=== PATIENT | male | born 1935 | race African-American/Black ===

== ENCOUNTER 2019-05-10 11:28 | Observation (INO) | payer MEDICARE, OTHER, SELFPAY ==
[2019-05-10] VITALS (8 sets, daily range): BP systolic 124–173; BP diastolic 56–105; PULSE 53–70; RESP 16–22; TEMP 36–37.3; O2SAT 94–100; BMI 37.7
--- NOTE | 2019-05-10 12:02 | ED_ITS ---
HPI - URI/Sore Throat <Sakina Russell, DO - Last Filed: 05/10/19 13:35> General Chief Complaint: Upper Respiratory Symptoms Stated Complaint: Thinks Pnemonia Time Seen by Provider: 05/10/19 11:40 Source: patient Mode of arrival: Wheelchair History of Present Illness HPI Narrative: Patient is an 83-year-old male with history of pancreatic cancer being treated at [facility] he recently was hospitalized at [facility] for pneumonia knee feels like it might be back. Over last 3 days he feels like he is more weak and tired and has occasional shortness of breath. He denies any sweats or chills no productive cough. He cannot describe a shortness of breath, it does not seem to be significantly worse with exertion or at rest. He denies any orthopnea. He also has intermittent abdominal pain he thinks likely from his pancreatic cancer. He was at [facility] last week for upper seizure which they were unable to do and the procedure needs to be rescheduled. He denies any chest pain or palpitation Related Data Home Medications Medication Instructions Recorded Confirmed allopurinol 100 mg PO DAILY 05/10/19 05/10/19 aspirin 325 mg PO DAILY 05/10/19 05/10/19 carvedilol 25 mg PO BID 05/10/19 05/10/19 clobetasol 1 applic TOPICAL PRN PRN 05/10/19 05/10/19 codeine-guaifenesin [Guaiatussin 10 ml PO Q4-6H PRN 05/10/19 05/10/19 AC] colchicine 0.3 mg PO DAILY 05/10/19 05/10/19 hydralazine 50 mg PO TID 05/10/19 05/10/19 levofloxacin 500 mg PO PRN PRN 05/10/19 05/10/19 lidocaine-prilocaine 1 applic TOPICAL PRN PRN 05/10/19 05/10/19 lisinopril 20 mg PO DAILY 05/10/19 05/10/19 ondansetron HCl 8 mg PO PRN PRN 05/10/19 05/10/19 oxycodone 10 mg PO BID PRN 05/10/19 05/10/19 oxycodone 10 mg PO TID PRN 05/10/19 05/10/19 oxycodone [OxyContin] 10 mg PO BID 05/10/19 05/10/19 potassium chloride 20 meq PO DAILY 05/10/19 05/10/19 potassium chloride [Klor-Con 10] 10 meq PO DAILY 05/10/19 05/10/19 prednisone 40 mg PO DAILY 05/10/19 05/10/19 prochlorperazine maleate 10 mg PO Q6H PRN 05/10/19 05/10/19 tadalafil 20 mg PO DAILY 05/10/19 05/10/19 torsemide 20 mg PO DAILY 05/10/19 05/10/19 Allergies Allergy/AdvReac Type Severity Reaction Status Date / Time NSAIDS (Non-Steroidal AdvReac Hives Verified 05/10/19 13:56 Anti-Inflamma Review of Systems <Sakina Russell DO - Last Filed: 05/10/19 13:35> Review of Systems ROS Unobtainable: All systems reviewed & are unremarkable except as noted in HPI and below Constitutional Constitutional: Denies chills, Denies fever(s), Denies lethargy and Denies weakness Eyes Eyes: Denies change in vision, Denies eye discharge, Denies irritation and Denies loss of vision ENT Ears, Nose, Mouth, and Throat: Denies change in voice, Denies neck pain and Denies sore throat Cardiovascular Cardiovascular: Denies chest pain, Denies irregular heart rhythm, Denies lightheadedness, Denies palpitations and Denies orthopnea Respiratory Respiratory: Reports as per HPI Gastrointestinal Gastrointestinal: Reports as per HPI Genitourinary Genitourinary: Denies hematuria, Denies flank pain, Denies urinary incontinence and Denies urinary urgency Musculoskeletal Musculoskeletal: Denies neck pain Integumentary/Breasts Skin/Breast: Denies pruritus, Denies erythema, Denies rash and Denies wounds Neurologic Neurologic: Denies confusion, Denies loss of vision and Denies weakness Psychiatric Psychiatric: Denies anxiety, Denies confusion, Denies depression, Denies homicidal ideation and Denies suicidal ideation Endocrine Endocrine: Denies palpitations Patient History <Sakina Russell DO - Last Filed: 05/10/19 13:35> Medical History Diabetes (Acute) Hypertension (Acute) Pancreatic cancer (Acute) Prostate cancer (Acute) Social History household members: spouse Smoking Status: Former smoker alcohol intake: never Smoking Status: Former smoker Exam <Sakina Russell DO - Last Filed: 05/10/19 13:35> Initial Vital Signs Initial Vital Signs: Vital Signs Temperature 96.8 F L 05/10/19 11:50 Pulse Rate 58 L 05/10/19 11:50 Respiratory Rate 22 05/10/19 11:50 Blood Pressure 173/70 H 05/10/19 11:50 Pulse Oximetry 100 05/10/19 11:50 GENERAL: Alert elderly male appears younger than stated age HEENT: Head atraumatic,EOMI, pupils reactive, bilateral icterus noted CARDIOVASCULAR: Regular rate and rhythm without murmurs, rubs or gallops. RESPIRATORY: Breath sounds equal bilaterally, no wheezes rales or rhonchi. ABDOMEN: Soft, nontender. Normoactive bowel sounds all 4 quadrants. No guarding or rebound. EXTREMITIES: Normal range of motion, no clubbing or edema. Neurovascularly intact NEUROLOGICAL: Alert and oriented x4.Normal gait and speech. SKIN: Warm, dry, no laceration, no petechiae, no rashes or lesions. <Naeem Lucas DO - Last Filed: 05/10/19 20:19> Initial Vital Signs Initial Vital Signs: Vital Signs Temperature 96.8 F L 05/10/19 11:50 Pulse Rate 58 L 05/10/19 11:50 Respiratory Rate 22 05/10/19 11:50 Blood Pressure 173/70 H 05/10/19 11:50 Pulse Oximetry 100 05/10/19 11:50 Course <Sakina Russell DO - Last Filed: 05/10/19 13:35> Orders Ordered: ED Orders 05/10/19 11:44 EKG-12 Lead Routine 05/10/19 12:20 CT abdomen pelvis w con Stat CT angio chest PE protocol Stat Influenza A & B (PCR) Stat 05/10/19 12:36 Complete Blood Count AUTO DIFF Stat Comprehensive Metabolic Panel Stat Lactate (Lactic Acid) Stat Lipase Stat Partial Thromboplastin Time Stat Procalcitonin Stat Prothrombin Time INR Stat Troponin & CK Cardiac Panel Stat 05/10/19 14:51 Urine Microscopic Stat 05/10/19 16:42 Potassium Stat 05/10/19 17:03 Urine Culture Stat Al Hydrox/Mg Hydrox/Simethicone (Maalox Plus) 30 ml PO Q6HR PRN PRN Reason: Dyspepsia Bisacodyl (Dulcolax) 10 mg MS DAILY PRN PRN Reason: Constipation Calcium Carbonate (Tums) 1,000 mg PO Q4HR PRN PRN Reason: Dyspepsia Dextrose (D50w) 25 gm IV PRN PRN; Protocol PRN Reason: Hypoglycemia Docusate Sodium (Colace) 100 mg PO BID PRN PRN Reason: Constipation Enoxaparin Sodium (Lovenox) 115 mg 1 mg/kg (115 mg) SUBCUT BID JN Insulin Aspart (Novolog Flexpen) 0 unit SUBCUT ACHS JN; Protocol Naloxone HCl (Narcan) 0.2 mg IV Q2MIN PRN PRN Reason: Opiate Reversal Ondansetron HCl (Zofran) 4 mg IV Q8HR PRN PRN Reason: Nausea And Vomiting Oxycodone HCl (Percolone) 5 mg PO Q6HR PRN PRN Reason: Pain, Moderate (4-6) Discontinued Medications Enoxaparin Sodium (Lovenox) 115 mg 1 mg/kg (115 mg) SUBCUT NOW ONE Stop: 05/10/19 17:21 Last Admin: 05/10/19 18:39 Dose: 115 mg Documented by: MEISENDelia Sodium Chloride (Normal Saline 0.9%) 1,000 mls @ 200 mls/hr IV CONT JN Last Infusion: 05/10/19 18:56 Dose: 0 mls/hr Documented by: Infusion: 05/10/19 18:05 Dose: 200 mls/hr Documented by: Admin: 05/10/19 13:03 Dose: 200 mls/hr Documented by: KELLEY Potassium Chloride 40 meq/ (Sodium Chloride) 520 mls @ 130 mls/hr IV NOW ONE Stop: 05/10/19 17:13 Last Infusion: 05/10/19 18:04 Dose: 130 mls/hr Documented by: CRISTÓBALSENB Cosigned by: AURORA Admin: 05/10/19 13:54 Dose: 130 mls/hr Documented by: CRISTÓBALSENB Cosigned by: AURORA Potassium Chloride (Klor-Con M20) 40 meq PO NOW ONE Stop: 05/10/19 13:36 Last Admin: 05/10/19 13:55 Dose: 40 meq Documented by: MEISENDelia Vital Signs Vital signs: Vital Signs - 8 hr 05/10/19 12:52 05/10/19 13:59 05/10/19 16:50 Pulse Rate 53 L 57 L 63 Respiratory Rate 18 16 17 Blood Pressure [Left Arm] 173/70 H 167/86 H 135/66 Pulse Oximetry 100 98 100 <Naeem Lucas, DO - Last Filed: 05/10/19 20:19> Course Course Narrative: Patient received in sign-out from Dr. Russell. I have performed an independent history and physical exam. CT has returned small pulmonary emboli in the right lower lobe. No pneumonia noted. PE has no ev idence of strain. Patient needs hospitalization for stabilization of hypoK and initiation of anticoagulation Orders Ordered: ED Orders 05/10/19 11:44 EKG-12 Lead Routine 05/10/19 12:20 CT abdomen pelvis w con Stat CT angio chest PE protocol Stat Influenza A & B (PCR) Stat 05/10/19 12:36 Complete Blood Count AUTO DIFF Stat Comprehensive Metabolic Panel Stat Lactate (Lactic Acid) Stat Lipase Stat Partial Thromboplastin Time Stat Procalcitonin Stat Prothrombin Time INR Stat Troponin & CK Cardiac Panel Stat 05/10/19 14:51 Urine Microscopic Stat 05/10/19 16:42 Potassium Stat 05/10/19 17:03 Urine Culture Stat Al Hydrox/Mg Hydrox/Simethicone (Maalox Plus) 30 ml PO Q6HR PRN PRN Reason: Dyspepsia Bisacodyl (Dulcolax) 10 mg MS DAILY PRN PRN Reason: Constipation Calcium Carbonate (Tums) 1,000 mg PO Q4HR PRN PRN Reason: Dyspepsia Dextrose (D50w) 25 gm IV PRN PRN; Protocol PRN Reason: Hypoglycemia Docusate Sodium (Colace) 100 mg PO BID PRN PRN Reason: Constipation Enoxaparin Sodium (Lovenox) 115 mg 1 mg/kg (115 mg) SUBCUT BID JN Insulin Aspart (Novolog Flexpen) 0 unit SUBCUT ACHS JN; Protocol Naloxone HCl (Narcan) 0.2 mg IV Q2MIN PRN PRN Reason: Opiate Reversal Ondansetron HCl (Zofran) 4 mg IV Q8HR PRN PRN Reason: Nausea And Vomiting Oxycodone HCl (Percolone) 5 mg PO Q6HR PRN PRN Reason: Pain, Moderate (4-6) Discontinued Medications Enoxaparin Sodium (Lovenox) 115 mg 1 mg/kg (115 mg) SUBCUT NOW ONE Stop: 05/10/19 17:21 Last Admin: 05/10/19 18:39 Dose: 115 mg Documented by: JANEE Sodium Chloride (Normal Saline 0.9%) 1,000 mls @ 200 mls/hr IV CONT JN Last Infusion: 05/10/19 18:56 Dose: 0 mls/hr Documented by: Infusion: 05/10/19 18:05 Dose: 200 mls/hr Documented by: Admin: 05/10/19 13:03 Dose: 200 mls/hr Documented by: KELLEY Potassium Chloride 40 meq/ (Sodium Chloride) 520 mls @ 130 mls/hr IV NOW ONE Stop: 05/10/19 17:13 Last Infusion: 05/10/19 18:04 Dose: 130 mls/hr Documented by: JANEE Cosigned by: AURORA Admin: 05/10/19 13:54 Dose: 130 mls/hr Documented by: JANEE Cosigned by: AURORA Potassium Chloride (Klor-Con M20) 40 meq PO NOW ONE Stop: 05/10/19 13:36 Last Admin: 05/10/19 13:55 Dose: 40 meq Documented by: JANEE Vital Signs Vital signs: Vital Signs - 8 hr 05/10/19 12:52 05/10/19 13:59 05/10/19 16:50 Pulse Rate 53 L 57 L 63 Respiratory Rate 18 16 17 Blood Pressure [Left Arm] 173/70 H 167/86 H 135/66 Pulse Oximetry 100 98 100 MDM - URI/Sore Throat <Sakina Russell DO - Last Filed: 05/10/19 13:35> Lab Data Attestation: I reviewed the patient's lab results. Result diagrams: 05/10/19 12:36 05/10/19 16:42 Labs: Lab Results 05/10/19 05/10/19 05/10/19 Range/Units 12:36 12:36 12:36 WBC 7.5 (4.5-11.0) X10^3/uL RBC 3.24 L (4.5-5.9) X10^6/uL Hgb 10.5 L (13.5-17.5) g/dL Hct 30.3 L (41-53) % MCV 93.6 (80-100) fL MCH 32.3 (26-34) PG MCHC 34.5 (30-36) % RDW 16.5 H (11.6-14.8) % Plt Count 231 (150-400) X10^3/uL Neut % (Auto) 56.9 (50-75) % Lymph % (Auto) 32.3 (25-40) % [place] % (Auto) 8.7 (3-14) % Eos % (Auto) 1.2 L (2-4) % Baso % (Auto) 0.9 (0-2) % Neut # (Auto) 4300 (6269-7628) /uL Lymph # (Auto) 2400 (7571-7181) /uL [place] # (Auto) 700 (0-900) /uL Eos # (Auto) 100 (0-450) /uL Baso # (Auto) 100 (0-100) /uL PT 20.9 H (10.1-12.7) SECONDS INR 1.8 H (0.9-1.3) APTT 31 (26.4-36.2) SECONDS Sodium (137-145) mmol/L Potassium (3.4-5.1) mmol/L Chloride (98-107) mmol/L Carbon Dioxide (22-32) mmol/L BUN (9-20) mg/dL Creatinine (0.66-1.25) mg/dL Estimated GFR (>60) mL/min BUN/Creatinine Ratio (6-22) Glucose (80-110) mg/dL Lactate (0.7-2.1) mmol/L Calcium (8.4-10.2) mg/dL Total Bilirubin (0.2-1.3) mg/dL AST (17-59) IU/L ALT (<50) IU/L Alkaline Phosphatase (38-126) U/L Total Creatine Kinase (55-170) U/L CK-MB (CK-2) CK-MB (CK-2) Rel Index Troponin I (0.01-0.034) ng/mL Total Protein (6.3-8.2) g/dL Albumin (3.5-5.0) g/dL Globulin (1.7-4.1) g/dL Albumin/Globulin Ratio (1.0-2.8) Lipase (23-300) U/L Procalcitonin 0.39 (<0.5) ng/mL Urine RBC (0-5/HPF) Urine WBC (0-5/HPF) Urine Bacteria (None) Hyaline Casts (None) Ur Culture Indicated? 05/10/19 05/10/19 05/10/19 Range/Units 12:36 12:36 14:51 WBC (4.5-11.0) X10^3/uL RBC (4.5-5.9) X10^6/uL Hgb (13.5-17.5) g/dL Hct (41-53) % MCV (80-100) fL MCH (26-34) PG MCHC (30-36) % RDW (11.6-14.8) % Plt Count (150-400) X10^3/uL Neut % (Auto) (50-75) % Lymph % (Auto) (25-40) % [place] % (Auto) (3-14) % Eos % (Auto) (2-4) % Baso % (Auto) (0-2) % Neut # (Auto) (8945-0832) /uL Lymph # (Auto) (2904-3301) /uL [place] # (Auto) (0-900) /uL Eos # (Auto) (0-450) /uL Baso # (Auto) (0-100) /uL PT (10.1-12.7) SECONDS INR (0.9-1.3) APTT (26.4-36.2) SECONDS Sodium 139 (137-145) mmol/L Potassium 2.2 L* (3.4-5.1) mmol/L Chloride 95 L (98-107) mmol/L Carbon Dioxide 37 H (22-32) mmol/L BUN 27 H (9-20) mg/dL Creatinine 1.50 H (0.66-1.25) mg/dL Estimated GFR 44.7 L (>60) mL/min BUN/Creatinine Ratio 18.0 (6-22) Glucose 120 H (80-110) mg/dL Lactate 1.4 (0.7-2.1) mmol/L Calcium 8.3 L (8.4-10.2) mg/dL Total Bilirubin 12.2 H (0.2-1.3) mg/dL AST 170 H (17-59) IU/L ALT 130 H (<50) IU/L Alkaline Phosphatase 652 H (38-126) U/L Total Creatine Kinase 72 (55-170) U/L CK-MB (CK-2) TNP CK-MB (CK-2) Rel Index TNP Troponin I 0.043 H (0.01-0.034) ng/mL Total Protein 6.8 (6.3-8.2) g/dL Albumin 3.1 L (3.5-5.0) g/dL Globulin 3.7 (1.7-4.1) g/dL Albumin/Globulin Ratio 0.8 L (1.0-2.8) Lipase 445 H (23-300) U/L Procalcitonin (<0.5) ng/mL Urine RBC None seen (0-5/HPF) Urine WBC 5-10/hpf H (0-5/HPF) Urine Bacteria Many (>30) H (None) Hyaline Casts 1-5/lpf (None) Ur Culture Indicated? Specimen cultured 05/10/19 Range/Units 16:42 WBC (4.5-11.0) X10^3/uL RBC (4.5-5.9) X10^6/uL Hgb (13.5-17.5) g/dL Hct (41-53) % MCV (80-100) fL MCH (26-34) PG MCHC (30-36) % RDW (11.6-14.8) % Plt Count (150-400) X10^3/uL Neut % (Auto) (50-75) % Lymph % (Auto) (25-40) % [place] % (Auto) (3-14) % Eos % (Auto) (2-4) % Baso % (Auto) (0-2) % Neut # (Auto) (4487-1655) /uL Lymph # (Auto) (1411-5174) /uL [place] # (Auto) (0-900) /uL Eos # (Auto) (0-450) /uL Baso # (Auto) (0-100) /uL PT (10.1-12.7) SECONDS INR (0.9-1.3) APTT (26.4-36.2) SECONDS Sodium (137-145) mmol/L Potassium 2.8 L (3.4-5.1) mmol/L Chloride (98-107) mmol/L Carbon Dioxide (22-32) mmol/L BUN (9-20) mg/dL Creatinine (0.66-1.25) mg/dL Estimated GFR (>60) mL/min BUN/Creatinine Ratio (6-22) Glucose (80-110) mg/dL Lactate (0.7-2.1) mmol/L Calcium (8.4-10.2) mg/dL Total Bilirubin (0.2-1.3) mg/dL AST (17-59) IU/L ALT (<50) IU/L Alkaline Phosphatase (38-126) U/L Total Creatine Kinase (55-170) U/L CK-MB (CK-2) CK-MB (CK-2) Rel Index Troponin I (0.01-0.034) ng/mL Total Protein (6.3-8.2) g/dL Albumin (3.5-5.0) g/dL Globulin (1.7-4.1) g/dL Albumin/Globulin Ratio (1.0-2.8) Lipase (23-300) U/L Procalcitonin (<0.5) ng/mL Urine RBC (0-5/HPF) Urine WBC (0-5/HPF) Urine Bacteria (None) Hyaline Casts (None) Ur Culture Indicated? Urine Dip Bedside Urine Glucose 100 mg/dl Bedside Urine Bilirubin + 1 Bedside Urine Ketone - Negative Urine Specific [place] 1.025 Bedside Urine Occult Blood - Negative Bedside Urine pH 6.0 Bedside Urine Protein +/- 15 Bedside Urine Urobilinogen - Negative Bedside Urine Nitrite + Positive Bedside Urine Leukocytes ++ 125 Esterase ECG Data Attestation: I personally reviewed and interpreted this ECG as follows: Prior ECG tracings: available for review Interpretation: Sinus rhythm rate 57 p.r. interval [address]-elevation or depression no priors to compare MDM Narrative Medical decision making narrative: Awaiting records from [facility]. Patient overall appears well and not septic however he is clearly jaundiced. Potassium came back at critically low 2.2 unclear reason why. Still awaiting records from [facility] to compare Patient is signed out to Dr. Lucas for further evaluation and management <Naeem Lucas, - Last Filed: 05/10/19 20:19> Lab Data Labs: Lab Results 05/10/19 05/10/19 05/10/19 Range/Units 12:36 12:36 12:36 WBC 7.5 (4.5-11.0) X10^3/uL RBC 3.24 L (4.5-5.9) X10^6/uL Hgb 10.5 L (13.5-17.5) g/dL Hct 30.3 L (41-53) % MCV 93.6 (80-100) fL MCH 32.3 (26-34) PG MCHC 34.5 (30-36) % RDW 16.5 H (11.6-14.8) % Plt Count 231 (150-400) X10^3/uL Neut % (Auto) 56.9 (50-75) % Lymph % (Auto) 32.3 (25-40) % [place] % (Auto) 8.7 (3-14) % Eos % (Auto) 1.2 L (2-4) % Baso % (Auto) 0.9 (0-2) % Neut # (Auto) 4300 (6065-8276) /uL Lymph # (Auto) 2400 (6261-7199) /uL [place] # (Auto) 700 (0-900) /uL Eos # (Auto) 100 (0-450) /uL Baso # (Auto) 100 (0-100) /uL PT 20.9 H (10.1-12.7) SECONDS INR 1.8 H (0.9-1.3) APTT 31 (26.4-36.2) SECONDS Sodium (137-145) mmol/L Potassium (3.4-5.1) mmol/L Chloride (98-107) mmol/L Carbon Dioxide (22-32) mmol/L BUN (9-20) mg/dL Creatinine (0.66-1.25) mg/dL Estimated GFR (>60) mL/min BUN/Creatinine Ratio (6-22) Glucose (80-110) mg/dL Lactate (0.7-2.1) mmol/L Calcium (8.4-10.2) mg/dL Total Bilirubin (0.2-1.3) mg/dL AST (17-59) IU/L ALT (<50) IU/L Alkaline Phosphatase (38-126) U/L Total Creatine Kinase (55-170) U/L CK-MB (CK-2) CK-MB (CK-2) Rel Index Troponin I (0.01-0.034) ng/mL Total Protein (6.3-8.2) g/dL Albumin (3.5-5.0) g/dL Globulin (1.7-4.1) g/dL Albumin/Globulin Ratio (1.0-2.8) Lipase (23-300) U/L Procalcitonin 0.39 (<0.5) ng/mL Urine RBC (0-5/HPF) Urine WBC (0-5/HPF) Urine Bacteria (None) Hyaline Casts (None) Ur Culture Indicated? 05/10/19 05/10/19 05/10/19 Range/Units 12:36 12:36 14:51 WBC (4.5-11.0) X10^3/uL RBC (4.5-5.9) X10^6/uL Hgb (13.5-17.5) g/dL Hct (41-53) % MCV (80-100) fL MCH (26-34) PG MCHC (30-36) % RDW (11.6-14.8) % Plt Count (150-400) X10^3/uL Neut % (Auto) (50-75) % Lymph % (Auto) (25-40) % [place] % (Auto) (3-14) % Eos % (Auto) (2-4) % Baso % (Auto) (0-2) % Neut # (Auto) (4286-3390) /uL Lymph # (Auto) (9683-5494) /uL [place] # (Auto) (0-900) /uL Eos # (Auto) (0-450) /uL Baso # (Auto) (0-100) /uL PT (10.1-12.7) SECONDS INR (0.9-1.3) APTT (26.4-36.2) SECONDS Sodium 139 (137-145) mmol/L Potassium 2.2 L* (3.4-5.1) mmol/L Chloride 95 L (98-107) mmol/L Carbon Dioxide 37 H (22-32) mmol/L BUN 27 H (9-20) mg/dL Creatinine 1.50 H (0.66-1.25) mg/dL Estimated GFR 44.7 L (>60) mL/min BUN/Creatinine Ratio 18.0 (6-22) Glucose 120 H (80-110) mg/dL Lactate 1.4 (0.7-2.1) mmol/L Calcium 8.3 L (8.4-10.2) mg/dL Total Bilirubin 12.2 H (0.2-1.3) mg/dL AST 170 H (17-59) IU/L ALT 130 H (<50) IU/L Alkaline Phosphatase 652 H (38-126) U/L Total Creatine Kinase 72 (55-170) U/L CK-MB (CK-2) TNP CK-MB (CK-2) Rel Index TNP Troponin I 0.043 H (0.01-0.034) ng/mL Total Protein 6.8 (6.3-8.2) g/dL Albumin 3.1 L (3.5-5.0) g/dL Globulin 3.7 (1.7-4.1) g/dL Albumin/Globulin Ratio 0.8 L (1.0-2.8) Lipase 445 H (23-300) U/L Procalcitonin (<0.5) ng/mL Urine RBC None seen (0-5/HPF) Urine WBC 5-10/hpf H (0-5/HPF) Urine Bacteria Many (>30) H (None) Hyaline Casts 1-5/lpf (None) Ur Culture Indicated? Specimen cultured 05/10/19 Range/Units 16:42 WBC (4.5-11.0) X10^3/uL RBC (4.5-5.9) X10^6/uL Hgb (13.5-17.5) g/dL Hct (41-53) % MCV (80-100) fL MCH (26-34) PG MCHC (30-36) % RDW (11.6-14.8) % Plt Count (150-400) X10^3/uL Neut % (Auto) (50-75) % Lymph % (Auto) (25-40) % [place] % (Auto) (3-14) % Eos % (Auto) (2-4) % Baso % (Auto) (0-2) % Neut # (Auto) (5680-9922) /uL Lymph # (Auto) (4646-6036) /uL [place] # (Auto) (0-900) /uL Eos # (Auto) (0-450) /uL Baso # (Auto) (0-100) /uL PT (10.1-12.7) SECONDS INR (0.9-1.3) APTT (26.4-36.2) SECONDS Sodium (137-145) mmol/L Potassium 2.8 L (3.4-5.1) mmol/L Chloride (98-107) mmol/L Carbon Dioxide (22-32) mmol/L BUN (9-20) mg/dL Creatinine (0.66-1.25) mg/dL Estimated GFR (>60) mL/min BUN/Creatinine Ratio (6-22) Glucose (80-110) mg/dL Lactate (0.7-2.1) mmol/L Calcium (8.4-10.2) mg/dL Total Bilirubin (0.2-1.3) mg/dL AST (17-59) IU/L ALT (<50) IU/L Alkaline Phosphatase (38-126) U/L Total Creatine Kinase (55-170) U/L CK-MB (CK-2) CK-MB (CK-2) Rel Index Troponin I (0.01-0.034) ng/mL Total Protein (6.3-8.2) g/dL Albumin (3.5-5.0) g/dL Globulin (1.7-4.1) g/dL Albumin/Globulin Ratio (1.0-2.8) Lipase (23-300) U/L Procalcitonin (<0.5) ng/mL Urine RBC (0-5/HPF) Urine WBC (0-5/HPF) Urine Bacteria (None) Hyaline Casts (None) Ur Culture Indicated? Urine Dip Bedside Urine Glucose 100 mg/dl Bedside Urine Bilirubin + 1 Bedside Urine Ketone - Negative Urine Specific [place] 1.025 Bedside Urine Occult Blood - Negative Bedside Urine pH 6.0 Bedside Urine Protein +/- 15 Bedside Urine Urobilinogen - Negative Bedside Urine Nitrite + Positive Bedside Urine Leukocytes ++ 125 Esterase Discharge Plan Departure Patient Disposition: Admitted As Inpatient Clinical Impression: Acute hypokalemia Pulmonary emboli Qualifiers: Chronicity: acute Acute cor pulmonale presence: unspecified Discharge Date/Time: 05/10/19 18:57 Admit Date/Time: 05/10/19 18:27 Admit Provider: Nidhi Hernandez
--- NOTE | 2019-05-10 12:20 | DI.CT.S_ITS ---
PROCEDURE: CT ABDOMEN PELVIS W CON INDICATIONS: known pancreatic cancer with ab pain TECHNIQUE: After the administration of oral and intravenous contrast, 5 mm thick sections acquired from the diaphragms to the symphysis. 5 mm thick coronal and sagittal reformats were performed. For radiation dose reduction, the following was used: automated exposure control, adjustment of mA and/or kV according to patient size. COMPARISON: None. FINDINGS: Image quality: Diagnostic. ABDOMEN: Lung bases: Prominent elevation of the left diaphragm is identified. There are areas of basilar atelectasis. Solid organs: The liver is normal in size. There is marked intrahepatic and extrahepatic biliary dilatation. There also is prominent dilatation of the main pancreatic duct. Soft tissue prominence of the head of the pancreas is identified. There is a prominent lymph node evident within the portacaval region and may be somewhat necrotic. The gallbladder is enlarged. Small gallstones within a phrygian cap are incidentally noted. The adrenals and kidneys appear to be within normal limits. The spleen is unremarkable. Peritoneum and bowel: The stomach and duodenum are within normal limits. The small bowel loops are nondilated. The appendix is well-visualized and is normal. A large amount of residual stool is identified throughout the colon. Distal colonic diverticulosis is identified without diverticulitis. There is no free fluid, loculated fluid collection or free air. Nodes and vessels: No extensive lymphadenopathy is seen within the abdomen or pelvis. However, there is at least a single dominant heterogeneous lymph node identified within the portacaval region, which measures approximately 2.7 x 2.0 cm (image 45, series 12). Additional smaller portacaval lymph nodes are evident. Aorta and inferior vena cava are normal in caliber. There is prominent aortic atherosclerosis. Bones: No acute fracture or suspicious osseous lesion is identified. Moderate degenerative changes of the lower lumbar spine are present. PELVIS: Genitourinary: Bladder wall thickness is normal. The prostate is surgically absent. Miscellaneous: No inguinal hernias or adenopathy. No free fluid or loculated fluid collection is appreciated. There is no free air. Bones: No suspicious bony lesions. No vertebral body compression fractures. IMPRESSION: 1. Marked dilatation of the biliary ducts and the main pancreatic duct is suggestive of a pancreatic head mass. 2. Enlarged portacaval lymph nodes are likely metastatic. No additional enlarged lymph nodes are appreciated or other evidence of metastatic disease. 3. The gallbladder is enlarged, which may represent chronic biliary stasis or gallbladder hydrops. There are small gallstones present. 4. Colonic diverticulosis without diverticulitis. There may be constipation. Note: Findings were discussed with Dr. Lucas at approximately 1405 hours (PST) on 05/10/19. Dictated by: Gavin Oliveira M.D. on 05/10/2019 at 13:29 Approved by: Gavin Oliveira M.D. on 05/10/2019 at 13:34
--- NOTE | 2019-05-10 12:20 | DI.CT.S_ITS ---
PROCEDURE: CT ANGIO CHEST PE PROTOCOL INDICATIONS: sob with pancreatic cancer TECHNIQUE: After the administration of intravenous contrast, 2 mm thick sections acquired from the pulmonary apices to the posterior costophrenic angles. 3-dimensional maximum intensity projection (MIP) coronal and sagittal reformats were then acquired through the thorax. For radiation dose reduction, the following was used: automated exposure control, adjustment of mA and/or kV according to patient size. COMPARISON: [facility], CT, CT ABDOMEN PELVIS W CON, 05/10/2019, 13:20. FINDINGS: Image quality: Diagnostic. Pulmonary arteries: A few small intraluminal filling defects are identified within the subsegmental pulmonary arterial branches of the right lower lobe pulmonary arterial branches (image 84, series 5). No definite additional pulmonary emboli are identified. No saddle embolism or large pulmonary emboli are present. The main pulmonary arterial trunk is not enlarged. Lungs and pleura: Prominent elevation of the left diaphragm may be related to diaphragmatic paralysis versus a diaphragmatic hernia with bowel and spleen extending into the thoracic cavity. This does exert mild mass effect on the left ventricle. Patchy areas of scarring versus atelectasis are noted within the bilateral lung bases and within the superior aspect of the right upper lobe. No effusion or pneumothorax is identified. No large area of pulmonary consolidation is appreciated. No lung masses or definitive pulmonary nodules are evident. Mediastinum: Heart size is normal, without pericardial effusion. No mediastinal or hilar adenopathy. Coronary and aortic atherosclerosis is noted. Thoracic aorta is normal in caliber and enhancement. Esophagus is normal in caliber, without hiatal hernia. Bones and chest wall: No suspicious bony lesions. Ribs and thoracic spine appear intact throughout. Thyroid gland is not adequately evaluated on CT. No axillary or supraclavicular adenopathy. Abdomen: Please see the dictated report of the abdomen/pelvis CT from 05/10/19 for complete details. IMPRESSION: 1. Small pulmonary emboli within the right lower lobe pulmonary arterial branches. 2. Mild scarring versus atelectasis within the lungs without a definite pneumonia evident. 3. Coronary and aortic atherosclerosis. 4. 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 Note: Findings were discussed with Dr. Lucas at 1405 hours (PST) on 05/10/19. Dictated by: Gavin Oliveira M.D. on 05/10/2019 at 12:56 Approved by: Gavin Oliveira M.D. on 05/10/2019 at 13:08
[2019-05-10 12:57] LABS: Add Manual Diff / Slide Review NO; Basophils Absolute Auto 100 /uL (0-100); Basophils Percent Auto 0.9 % (0-2); Eosinophils Absolute Auto 100 /uL (0-450); Eosinophils Percent Auto 1.2 % (2-4); Hematocrit 30.3 % (41-53); Hemoglobin 10.5 g/dL (13.5-17.5); INR 1.8 (0.9-1.3); Lymphocytes Absolute Auto 2400 /uL (1100-4500); Lymphocytes Percent Auto 32.3 % (25-40); Mean Corpuscular HGB Conc 34.5 % (30-36); Mean Corpuscular Hemoglobin 32.3 PG (26-34); Mean Corpuscular Volume 93.6 fL (80-100); Monocytes Absolute Auto 700 /uL (0-900); Monocytes Percent Auto 8.7 % (3-14); Neutrophils Absolute Auto 4300 /uL (1500-7000); Neutrophils Percent Auto 56.9 % (50-75); Platelet Count 231 X10^3/uL (150-400); Prothrombin Time 20.9 SECONDS (10.1-12.7); Red Blood Cell Count 3.24 X10^6/uL (4.5-5.9); Red Cell Distribution Width 16.5 % (11.6-14.8); White Blood Cell Count 7.5 X10^3/uL (4.5-11.0)
[2019-05-10 13:00] LABS: PTT Partial Thromboplastin Tim 31 SECONDS (26.4-36.2)
[2019-05-10 13:03] LABS: Lactate (Lactic Acid) 1.4 mmol/L (0.7-2.1)
[2019-05-10] MEDS: SODIUM CHLORIDE 0.9% 1,000 ML 200 ML IV (13:03)
[2019-05-10 13:04] LABS: Alanine Aminotransferase 130 IU/L (<50); Albumin 3.1 g/dL (3.5-5.0); Albumin Globulin Ratio 0.8 (1.0-2.8); Alkaline Phosphatase 652 U/L (38-126); Aspartate Aminotransferase 170 IU/L (17-59); Bilirubin Total 12.2 mg/dL (0.2-1.3); Blood Urea Nitrogen 27 mg/dL (9-20); Calcium 8.3 mg/dL (8.4-10.2); Carbon Dioxide 37 mmol/L (22-32); Chloride 95 mmol/L (98-107); Creatine Kinase 72 U/L (55-170); Estimated Glomerular Filt Rate 44.7 mL/min (>60); Globulin 3.7 g/dL (1.7-4.1); Glucose 120 mg/dL (80-110); HEMOLYSIS < 15 (0-50); Lipase 445 U/L (23-300); Sodium 139 mmol/L (137-145); Total Protein 6.8 g/dL (6.3-8.2)
[2019-05-10 13:12] LABS: Potassium 2.2 mmol/L (3.4-5.1)
[2019-05-10 13:15] LABS: Troponin I 0.043 ng/mL (0.01-0.034)
--- NOTE | 2019-05-10 13:23 | PC.NURSE ---
reports had double pneumonia in [place] for 3 weeks, home for 2 weeks, not better.
[2019-05-10 13:24] LABS: Procalcitonin 0.39 ng/mL (<0.5)
[2019-05-10] MEDS: POTASSIUM CHLORIDE 40 MEQ in SODIUM CHLORIDE 0.9% 500 ML 130 ML IV ×2 (13:54→23:42)
[2019-05-10] MEDS: POTASSIUM CHLORIDE 20 MEQ TAB 40 MEQ PO (13:55)
[2019-05-10 15:50] LABS: RBC Urine None Seen (0-5/HPF)
[2019-05-10 16:09] LABS: Bacteria Urine Many (>30); Culture Indicated Urine Specimen Cultured; Hyaline Casts Urine 1-5/LPF; WBC Urine 5-10/HPF (0-5/HPF)
--- NOTE | 2019-05-10 16:50 | PC.NURSE ---
breath sound clear bilaterally. pt states, feeling fine.
[2019-05-10 16:59] LABS: HEMOLYSIS 48 (0-50)
[2019-05-10 17:02] LABS: Potassium 2.8 mmol/L (3.4-5.1)
[2019-05-10] MEDS: ENOXAPARIN 100 MG/ML SYRINGE 115 MG SUBCUT (18:39)
--- NOTE | 2019-05-10 19:16 | PC.NURSE ---
Pt arrived to room 223 from ED via w/c. Stand pivot trans to bed. Pt reports he is w/c bound at baseline. BP elevated. Pt denies headache or other symptoms. Oriented to room and call system. 2 RN skin check complete. Supportive family at bedside. Bed alarm placed on, Fall prevention education provided.
[2019-05-10] MEDS: MAGNESIUM SULFATE 2 GM/50 ML PIGGYBACK IV (21:21)
[2019-05-10] MEDS: HYDRALAZINE 25 MG TABLET 50 MG PO (21:32)
[2019-05-10] MEDS: carvediloL 25 MG TABLET PO (21:32)
[2019-05-10] MEDS: MELATONIN 3 MG TABLET 6 MG PO (21:33)
[2019-05-10] MEDS: OXYCODONE ER 10 MG TAB PO (21:33)
[2019-05-10] MEDS: PANTOPRAZOLE 20 MG TABLET 40 MG PO (21:35)
--- NOTE | 2019-05-10 22:13 | PM.HP.1 ---
History of Present Illness History of Present Illness Date Patient Seen: 05/10/19 Time Patient Seen: 20:21 Chief complaint: Thinks Pnemonia Narrative: Mr. Gildardo Llanos is an 83-year-old male with a history significant for type 2 diabetes, hypertension, pancreatic cancer, prostate cancer, chronic back pain and GERD who presents to the ER for 3 days of weakness feeling tired, shortness of breath and intermittent nonproductive cough. The patient was recently admitted to [facility] and discharged 1 week ago following treatment for pneumonia and states his concern of pneumonia returning. Upon discharge from [facility] the patient was prescribed 80 mEq of potassium daily to which the pharmacy stated that that dose was too high and told the patient to take 40 mg daily. The patient also complains of abdominal pain with a history of pancreatic cancer. He has previously received chemotherapy and is taking OxyContin and oxycodone for pain. The patient denies complaints of headaches or dizziness, fevers or chills. He has no nasal congestion or sore throat. Denies complaints of chest pain or palpitations and has shortness of breath that appears to be exertional with cough as above. He has chronic abdominal pain that he states is unchanged. He reports complaints of reflux symptoms with acid taste and hoarseness. He denies nausea or vomiting and denies constipation or diarrhea. Reports no difficulty urinating and takes torsemide for bilateral lower extremity edema. He also reports neuropathy of bilateral lower extremities creating difficulty ambulating for which she is undergoing physical therapy. Upon arrival the ER the patient is afebrile with temperature of 96.8?, heart rate of 58, blood pressure 173/70, respiratory rate of 22 saturating 100% on room air. CT of the abdomen pelvis revealed feels heart ductal dilatation including the main pancreatic duct, gallbladder is enlarged with stasis versus hydrops with small stones present, colonic diverticulosis without diverticulitis, enlarged portacaval lymph nodes. CT of the chest is obtained which reveals subsegmental right lower lobe pulmonary emboli, elevated left hemidiaphragm with scarring versus atelectasis bilateral bases without pneumonia. Twelve lead EKG is obtained which finds a sinus Ted with a rate of 57, right axis with a right bundle branch block, left posterior fascicular block, no evidence of ischemia. On laboratory analysis patient has white blood cell count of 7.5, hemoglobin of 10.5, hematocrit of 30.3 and platelets of 231. Coagulation has a PT of 20.9 with an INR of 1.8 and PTT of 31 not on anticoagulation. On chemistries patient was initially found to have a potassium of 2.2 which was repleted with 40 mEq p.o. and 40 mEq IV and on recheck was found to be 2.8. His LFTs are markedly elevated a total bilirubin 12.2, AST of 170, ALT of 130 and alkaline phosphatase of 652. His lipase is 445. He has a from that is elevated at 0.043 in the setting of chronic renal disease. On urinalysis he has 5-10 wbc's many bacteria casts but is asymptomatic. Size repletion of potassium in the ER the patient receives Lovenox 1 milligram/kilogram for 115 mg subcutaneously. Patient is admitted to the medicine service for pulmonary emboli and hypokalemia. Patient History Medical History (Updated 05/11/19 @ 03:27 by ASHISH Watts) Agent orange exposure (Acute) Chronic back pain (Acute) Chronic renal insufficiency, stage III (moderate) (Acute) Diabetes (Acute) GERD (gastroesophageal reflux disease) (Acute) Hypertension (Acute) Pancreatic cancer (Acute) Peripheral neuropathy (Acute) Prostate cancer (Acute) PTSD (post-traumatic stress disorder) (Acute) Skin cancer (Acute) Surgical History (Updated 05/11/19 @ 03:27 by ASHISH Watts) History of local excision of skin lesion (Acute) History of prostatectomy (Acute) Family & Social History Family History (Updated 05/11/19 @ 03:28 by ASHISH Watts) Father Trauma Mother Arthritis Social History: household members spouse Prior Living Arrangements House Safety & Behavioral: Feels Safe in Current Yes Environment Been Physically Hurt or No Threatened By a Person Tobacco & Substance use: Smoking Status Former smoker alcohol intake never Substance Use Type does not use Comment: The patient lives in a single family home with his to whom has been for 20 years. He reports his father 1 he was only 2 years old related to trauma did not no further his health history. His mother had arthritis and lived to be 83. He has 2 half brothers that he has describes as in good health and he has 4 children also in good health. He denies a family history of cancer, diabetes or cardiovascular disease. Smoking: Patient quit smoking 50 years ago before which he smoked 1/2 packs per day. Alcohol: Patient drinks alcohol intermittently but limits himself to 2 drinks at a time. Substance use: Patient denies recreation pharmaceuticals herbal or cannabis products. Advanced directives: The patient has formal advanced directive and states his desire to be FULL CODE. He designates his to be his surrogate decision maker. Meds Home Medications and Allergies Home Medications Medication Instructions Recorded Confirmed Type allopurinol 100 mg PO DAILY 05/10/19 05/10/19 History aspirin 325 mg PO DAILY 05/10/19 05/10/19 History carvedilol 25 mg PO BID 05/10/19 05/10/19 History clobetasol 1 applic TOPICAL PRN PRN 05/10/19 05/10/19 History codeine-guaifenesin [Guaiatussin 10 ml PO Q4-6H PRN 05/10/19 05/10/19 History AC] colchicine 0.3 mg PO DAILY 05/10/19 05/10/19 History hydralazine 50 mg PO TID 05/10/19 05/10/19 History levofloxacin 500 mg PO PRN PRN 05/10/19 05/10/19 History lidocaine-prilocaine 1 applic TOPICAL PRN PRN 05/10/19 05/10/19 History lisinopril 20 mg PO DAILY 05/10/19 05/10/19 History ondansetron HCl 8 mg PO PRN PRN 05/10/19 05/10/19 History oxycodone 10 mg PO BID PRN 05/10/19 05/10/19 History oxycodone 10 mg PO TID PRN 05/10/19 05/10/19 History oxycodone [OxyContin] 10 mg PO BID 05/10/19 05/10/19 History potassium chloride 20 meq PO DAILY 05/10/19 05/10/19 History potassium chloride [Klor-Con 10] 10 meq PO DAILY 05/10/19 05/10/19 History prednisone 40 mg PO DAILY 05/10/19 05/10/19 History prochlorperazine maleate 10 mg PO Q6H PRN 05/10/19 05/10/19 History tadalafil 20 mg PO DAILY 05/10/19 05/10/19 History torsemide 20 mg PO DAILY 05/10/19 05/10/19 History Allergies Allergy/AdvReac Type Severity Reaction Status Date / Time NSAIDS (Non-Steroidal AdvReac Hives Verified 05/10/19 13:56 Anti-Inflamma Review of Systems Review of Systems Narrative: All systems reviewed and found unremarkable under discussed in the HPI above. Exam Vital Signs (past 8 hours): - 05/10/19 16:50 05/10/19 18:50 05/10/19 19:57 Temperature 97.4 F L 99.1 F Pulse Rate 63 68 68 Respiratory Rate 17 18 17 Blood Pressure 165/104 H 148/70 H Blood Pressure [Left Arm] 135/66 Pulse Oximetry 100 99 94 05/10/19 21:32 Temperature Pulse Rate 70 Respiratory Rate Blood Pressure 148/70 H Blood Pressure [Left Arm] Pulse Oximetry Oxygen Delivery Method Room Air Narrative Exam Narrative: GENERAL APPEARANCE: well developed, obese male with a BMI of 37.7, mildly uncomfortable appearing. HEENT: Normocephalic, PERRLA, arcus senilis, jaundiced sclera, EOMs intact without nystagmus, no sinus tenderness to percussion, no rhinorrhea, mucous membranes are moist and pink with jaundice hue without lesions or exudate. NECK/THYROID: neck supple, no JVD, no carotid bruit, no thyromegaly, trachea midline palpable implant infusion port line right neck. LYMPH NODES: no cervical or supraclavicular lymphadenopathy. SKIN: Jaundice, warm and dry, no visible lesions, rashes, ulcerations or petechiae. HEART: regular rate and rhythm, S1-S2, no murmur, no rubs or gallops, brisk capillary refill, 2+edema bilateral feet LUNGS: Diminished but clear to auscultation bilaterally, no coarseness crackles or wheezing, no cough present CHEST: Infusion port right upper chest, symmetrical movement, no accessory muscle use, good tidal volume. ABDOMEN: Firm, round, no abdominal tenderness, no fluid wave appreciated, no organomegaly, no flank or suprapubic tenderness, active bowel tones. EXTREMITIES: Bilateral lower extremity edema, moves all extremities, strength is 5/5 and symmetrical, no deformities or joint effusions. NEUROLOGIC: AAO x4, cranial nerves II-XII grossly intact, neuropathy bilateral feet to the ankle, hearing grossly normal to speech. PSYCH: Good eye contact, difficult historian, tangential thought, cooperative, appropriate with stable behavior Objective Labs Result Diagrams: 05/10/19 12:36 05/10/19 16:42 Labs: Laboratory Results - last 24 hr 05/10/19 05/10/19 05/10/19 12:36 12:36 12:36 WBC 7.5 RBC 3.24 L Hgb 10.5 L Hct 30.3 L MCV 93.6 MCH 32.3 MCHC 34.5 RDW 16.5 H Plt Count 231 Neut % (Auto) 56.9 Lymph % (Auto) 32.3 [place] % (Auto) 8.7 Eos % (Auto) 1.2 L Baso % (Auto) 0.9 Neut # (Auto) 4300 Lymph # (Auto) 2400 [place] # (Auto) 700 Eos # (Auto) 100 Baso # (Auto) 100 PT 20.9 H INR 1.8 H APTT 31 Sodium Potassium Chloride Carbon Dioxide BUN Creatinine Estimated GFR BUN/Creatinine Ratio Glucose Lactate Calcium Magnesium Total Bilirubin AST ALT Alkaline Phosphatase Total Creatine Kinase CK-MB (CK-2) CK-MB (CK-2) Rel Index Troponin I Total Protein Albumin Globulin Albumin/Globulin Ratio Lipase Procalcitonin 0.39 Urine RBC Urine WBC Urine Bacteria Hyaline Casts Ur Culture Indicated? 05/10/19 05/10/19 05/10/19 12:36 12:36 14:51 WBC RBC Hgb Hct MCV MCH MCHC RDW Plt Count Neut % (Auto) Lymph % (Auto) [place] % (Auto) Eos % (Auto) Baso % (Auto) Neut # (Auto) Lymph # (Auto) [place] # (Auto) Eos # (Auto) Baso # (Auto) PT INR APTT Sodium 139 Potassium 2.2 L* Chloride 95 L Carbon Dioxide 37 H BUN 27 H Creatinine 1.50 H Estimated GFR 44.7 L BUN/Creatinine Ratio 18.0 Glucose 120 H Lactate 1.4 Calcium 8.3 L Magnesium Total Bilirubin 12.2 H AST 170 H ALT 130 H Alkaline Phosphatase 652 H Total Creatine Kinase 72 CK-MB (CK-2) TNP CK-MB (CK-2) Rel Index TNP Troponin I 0.043 H Total Protein 6.8 Albumin 3.1 L Globulin 3.7 Albumin/Globulin Ratio 0.8 L Lipase 445 H Procalcitonin Urine RBC None seen Urine WBC 5-10/hpf H Urine Bacteria Many (>30) H Hyaline Casts 1-5/lpf Ur Culture Indicated? Specimen cultured 05/10/19 05/10/19 16:42 16:42 WBC RBC Hgb Hct MCV MCH MCHC RDW Plt Count Neut % (Auto) Lymph % (Auto) [place] % (Auto) Eos % (Auto) Baso % (Auto) Neut # (Auto) Lymph # (Auto) [place] # (Auto) Eos # (Auto) Baso # (Auto) PT INR APTT Sodium Potassium 2.8 L Chloride Carbon Dioxide BUN Creatinine Estimated GFR BUN/Creatinine Ratio Glucose Lactate Calcium Magnesium 1.0 L Total Bilirubin AST ALT Alkaline Phosphatase Total Creatine Kinase CK-MB (CK-2) CK-MB (CK-2) Rel Index Troponin I Total Protein Albumin Globulin Albumin/Globulin Ratio Lipase Procalcitonin Urine RBC Urine WBC Urine Bacteria Hyaline Casts Ur Culture Indicated? Assessment & Plan Assessment & Plan narrative: This is an 83-year-old male patient who presents to the hospital for weakness fatigue and being tired and found to be hypokalemic and have pulmonary emboli in the setting of pancreatic cancer. The patient has not been on anticoagulation and has an elevated INR 1.8 with markedly elevated LFTs and bilirubin without elevation of lipase. 1. Acute pulmonary emboli, present on admission, active. -The patient complains of continuing shortness of breath with intermittent dry cough but denies pleuritic chest pain. -CTA finds subsegmental right lower lobe pulmonary emboli without evidence of heart strain. Patient has elevated troponin at 0.043 in the setting of renal insufficiency with the creatinine 1.5. -Oxygen saturation remains adequate without supplemental O2. -Patient has elevated INR 1.8 related to liver dysfunction. -Ordered Lovenox 115 mg subcutaneously twice daily. 2. Acute hypokalemia, present on admission, active -Patient has a potassium of 2.2 on initial laboratory study. Patient received potassium 40 mEq p.o. and 40 mEq IV, on recheck is found to be 2.8. -Will continue potassium repletion with an additional 40 mEq IV. -Will check chemistries in the morning. 3. Chronic renal insufficiency, present on admission, active. -Creatinine on admission is 1.5 with a BUN of 27. -Kidneys are noted to be normal in appearance on CT of the abdomen and pelvis. -Causes for kidney dysfunction or multifactorial including who panel renal syndrome, diabetes, hypertension. -continue home regimen of torsemide 20 mg daily. -Continue home medication of allopurinol 100 mg daily and colchicine 0.3 mg daily. -Will monitor renal function on chemistries. -Avoid renal toxic agents and renal dose medications as indicated. 4. Pancreatic cancer, chronic, present on admission, active -marked intrahepatic and extrahepatic biliary dilatation. There also is prominent dilatation of the main pancreatic duct. No abnormalities of the liver is identified on the CT exam. Notation is made of elevated left hemidiaphragm. -Patient has undergone chemotherapy and is to return to [facility] for placement of localized radiation that was canceled and to be rescheduled. -patient has bilateral lower extremity neuropathy leave related to chemotherapy. -Pain control with OxyContin 10 mg twice daily, oxycodone 5 or 10 mg every 4 hours as needed for breakthrough pain. -Continue prednisone 40 mg daily. -Will follow-up with [facility] Oncology as needed. 5. Elevated liver function tests, relieved chronic, present on admission, active. -Patient with jaundice sclera and jaundice hue of the oral mucosa. -Patient with elevated liver function tests with a bilirubin of 12.32, AST 170, ALT 130 and alkaline phosphatase of 652. No comparison available. -CT of the abdomen and pelvis makes no mention of liver abnormalities only ductal dilatation, likely appears to be obstructive. -Medical records thus far received from [facility] provide no insight. -Will recheck CMP and INR in the morning to assess trajectory. -Follow-up with [facility] Oncology as needed. 6. Gastroesophageal reflux disorder, chronic, present on admission, active. -Patient with history of GERD complaining of reflux symptoms including hoarseness and acid taste. -Ordered Protonix 40 mg now followed by 20 mg twice daily. 7. Essential hypertension, present on admission, active. -Patient's blood pressure on admission is 173/70 that has trended downward to 140s over 70s after admission to acute care. -Will continue patient's home regimen of carvedilol 25 mg twice daily, hydralazine 50 mg 3 times daily and lisinopril 20 mg daily. 8. Diabetes type 2, non insulin dependent, chronic, present on admission, stable. -Patient's blood sugar on admission is 120 mg per dL. -Patient was previously on metformin which was discontinued due to renal and liver function. -Fingerstick blood sugar checks a.c. and HS, coverage with a low scale correctional insulin. -Obtain hemoglobin A1c. -Medium carbohydrate diet. 9. Bilateral lower extremity edema, chronic, stable. -Will continue home regimen of torsemide 20 mg daily. 10. Bilateral lower extremity neuropathy, chronic, present on admission, active -Patient with impaired mobility and difficulty walking related to his neuropathy and per patient report is working with physical therapy -PT and OT to consult and evaluate. 11. Normocytic normochromic anemia, present on admission, stable. -Represents anemia of chronic disease. -Patient without evidence of bleeding with an elevated INR of 1.8 not on anticoagulation. -Will monitor blood count. VTE prophylaxis: SCDs, patient receiving therapeutic dose Lovenox Diet: Constant carbohydrate, medium, low-fat. IV fluid: Saline lock. Patient is admitted to the hospital for pulmonary emboli requiring anticoagulation and hypokalemia requiring repletion and monitoring. The patient is at risk for complications and adverse events and is admitted observation status with an expected length of stay less than 2 midnights. Scores GCS Gustavo coma scale eye opening: Spontaneous Gustavo coma scale verbal response: Orientated [place] coma scale motor response: Obey commands Gustavo coma scale total score: 15
[2019-05-10 22:15] LABS: Influenza A - CEPHEID Flu A NEGATIVE (NEGATIVE); Influenza B - CEPHEID Flu B NEGATIVE (NEGATIVE)
[2019-05-10] MEDS: OXYCODONE IR 5 MG TABLET PO (22:54)
[2019-05-11] MEDS: OXYCODONE IR 10 MG TABLET PO (03:12)
[2019-05-11 03:30] VITALS: BP 133/58; PULSE 68; RESP 16; TEMP 36.8; O2SAT 91
[2019-05-11 06:11] LABS: PTT Partial Thromboplastin Tim 41 SECONDS (26.4-36.2)
[2019-05-11 06:14] LABS: Alanine Aminotransferase 124 IU/L (<50); Albumin 2.8 g/dL (3.5-5.0); Albumin Globulin Ratio 0.8 (1.0-2.8); Alkaline Phosphatase 662 U/L (38-126); Aspartate Aminotransferase 172 IU/L (17-59); BUN Creatinine Ratio 17.7 (6-22); Bilirubin Total 11.4 mg/dL (0.2-1.3); Blood Urea Nitrogen 23 mg/dL (9-20); Calcium 8.2 mg/dL (8.4-10.2); Carbon Dioxide 31 mmol/L (22-32); Chloride 101 mmol/L (98-107); Estimated Glomerular Filt Rate 52.7 mL/min (>60); Globulin 3.5 g/dL (1.7-4.1); Glucose 114 mg/dL (80-110); HEMOLYSIS < 15 (0-50); Sodium 141 mmol/L (137-145); Total Protein 6.3 g/dL (6.3-8.2)
[2019-05-11 06:26] LABS: Hemoglobin 9.7 g/dL (13.5-17.5); Mean Corpuscular HGB Conc 33.5 % (30-36); Mean Corpuscular Hemoglobin 31.5 PG (26-34); Mean Corpuscular Volume 94.1 fL (80-100); Platelet Count 234 X10^3/uL (150-400); Red Blood Cell Count 3.08 X10^6/uL (4.5-5.9); Red Cell Distribution Width 16.6 % (11.6-14.8); White Blood Cell Count 7.8 X10^3/uL (4.5-11.0)
[2019-05-11 06:27] LABS: Add Manual Diff / Slide Review YES
[2019-05-11] MEDS: PANTOPRAZOLE 20 MG TABLET PO (06:27)
[2019-05-11 06:41] LABS: Potassium 2.5 mmol/L (3.4-5.1)
[2019-05-11 06:49] LABS: Neutrophils Absolute Manual 5304 /uL (3000-5900); Total Cells Counted 100
[2019-05-11 06:50] LABS: Anisocytosis 1+; Target Cells 2+
[2019-05-11 06:51] LABS: Hemoglobin A1C% w Est Avg Glu 4.7 % (4.0-6.0)
[2019-05-11] MEDS: POTASSIUM CHLORIDE 40 MEQ in SODIUM CHLORIDE 0.9% 500 ML 130 ML IV (06:57)
[2019-05-11 07:55] VITALS: BP 140/69; PULSE 60; RESP 16; TEMP 37.1; O2SAT 95
--- NOTE | 2019-05-11 09:13 | CM.DANOTE ---
Addendum entered by Lauren Aguilar R.N. 05/11/19 15:40: Hetal at [facility] called back and stated that they can see patient tomorrow. Gave her patient's room number so she can let him know, for she was unable to reach him on his personal cell phone. Let Hetal know that patient has discharge orders, but is pending discharge summary. Addendum entered by Lauren Aguilar R.N. 05/11/19 14:04: Patient has discharge orders. Had Dr. Huertas sign face to face to get home health. Included nursing, for patient will be going home on Lovenox injections, as well as P.T, O.T, MACHINE WORKER for resources for in home caregivers, and bath aide. Met with patient and . They have no preference as far as agencies, but appreciate all of the help that they can get. Went ahead and ordered [facility] health, per calendar of the week. Spoke to Hetal, and stated the disciplines that will be needed. She stated that they may be able to see patient tomorrow, if nursing can see another patient, otherwise, would be Wed. Let her know what is needed. Gave patient and [facility] book as well. Went ahead and faxed over face sheet, face to face, orders, and H&P, is pending discharge summary. Addendum entered by Lauren Aguilar R.N. 05/11/19 12:52: Left a message for [facility] Care [facility]. Their number is: [phone], to inquire if patient was inpatient status, and dates of admission to discharge. Original Note: DCP: Case received, EMR reviewed and met with patient. Introduced self and role. Was able to meet with patient to obtain baseline history regarding activity level and living situation. Maia from O.T. was also in the room interviewing patient. was sleeping at the window seat. DCP assessment completed with information currently available. Patient is an 83 year old male who admitted yesterday evening to the care of the hospitalist team. PCP: Dr. Friedman. Payer: confirmed: Medicare/[employer]. Patient came to the hospital via family vehicle secondary to concerns that he may have pneumonia. Patient has history of pancreatic cancer, and has been going to [facility] for treatment. Patient is here for acute cor pulmole. Met with patient in his room. His was sleeping. He is alert and oriented. Patient stated, its hard for him to get around at home, he uses a walker and cane, and sometimes they have to carry him upstairs. Asked patient who does this, and stated that his 's daughter helps out. Patient stated that he has been looking around for caregivers. Asked patient if he has ever had home health services, and stated he has not. Let him know that this disease case manager can help set this up. Also, let him know that he can be provided with [facility] book as well with caregiving agencies available. P: DCP to continue to follow closely. Will see what P.T. states, and will discuss at team rounds. Lauren Aguilar RN/Drawing Tender
[2019-05-11] MEDS: ENOXAPARIN 60 MG/0.6 ML SYRINGE 115 MG SUBCUT (09:45)
[2019-05-11] MEDS: OXYCODONE ER 10 MG TAB PO (09:46)
[2019-05-11] MEDS: carvediloL 25 MG TABLET PO (09:46)
[2019-05-11] MEDS: ASPIRIN 325 MG TABLET PO (09:46)
[2019-05-11] MEDS: COLCHICINE 0.6 MG TABLET 0.3 MG PO (09:46)
[2019-05-11] MEDS: HYDRALAZINE 25 MG TABLET 50 MG PO (09:46)
[2019-05-11] MEDS: lisinopriL 20 MG TABLET PO (09:46)
[2019-05-11] MEDS: TORSEMIDE 10 MG TABLET 20 MG PO (09:47)
[2019-05-11] MEDS: predniSONE 10 MG TABLET 40 MG PO (09:47)
[2019-05-11] MEDS: POTASSIUM CHLORIDE 20 MEQ TAB 40 MEQ PO (09:47)
[2019-05-11] MEDS: allopurinoL 100 MG TABLET PO (09:48)
--- NOTE | 2019-05-11 09:59 | OT.IP.EVAL ---
Past Medical History (Last Updated 05/11/19 @ 03:27 by ASHISH Watts) Agent orange exposure (Acute) Chronic back pain (Acute) Chronic renal insufficiency, stage III (moderate) (Acute) Diabetes (Acute) GERD (gastroesophageal reflux disease) (Acute) Hypertension (Acute) Pancreatic cancer (Acute) Peripheral neuropathy (Acute) Prostate cancer (Acute) PTSD (post-traumatic stress disorder) (Acute) Skin cancer (Acute) Surgical History (Last Updated 05/11/19 @ 03:27 by ASHISH Watts) History of local excision of skin lesion (Acute) History of prostatectomy (Acute) Occupational Therapy Inpatient Evaluation/Re-Eval M1 PT/OT-IP Prior Functional Status Start: 05/11/19 09:36 Freq: NEEDED Status: Active Protocol: Document 05/11/19 09:36 [facility] (Rec: 05/11/19 09:59 [facility] [id number]) Medical Review Prior Functional Status Medical History Reviewed Yes Communication Independent. Mobility and Gait Pt states use of FWW in the house and wc for longer distances when going outside. Activities of Daily Living and IADL's Pt states since having PNA, has had to assist with Lb dressing and bathing needs. Pt states has just started to be able to wipe himself after a bowel movement. Social History Household Members spouse Living Arrangements House Number of Floors (Floors) Two Floors Number of Stairs To Enter/Railing? Pt has a split level house. 2 wide steps to enter the house with no handrails. 7 steps up with right rail to get to the main level of the house. Pt states needing assist from and daughter to get get up and down the steps and at times needing them to help move his legs. Home Environment Standard Height Toilet,Tub/ Shower Home Equipment Front Wheel Walker,Straight Cane,Manual Wheelchair,Hand Held Shower Employment Status Retired Additional Social History Comment Pt's able to assist but minimally if needing physical assist. Pt's kids per pt are not reliable to come and help out consistently. M2 OT-IP Current Condition Start: 05/11/19 09:36 Freq: Status: Active Protocol: Document 05/11/19 09:36 [facility] (Rec: 05/11/19 09:59 [facility] [id number]) Occupational Therapy Current Condition Current Condition Evaluation Date 02/10/20 Treatment Diagnosis Acute pulmonary emobli, decreased mobility Diagnosis Onset Date 05/10/19 Weight Bearing Status Weight Bearing Status Weight Bear as Tolerated M3 OT- IP Subjective and Pain Start: 05/11/19 09:36 Freq: Status: Active Protocol: Document 05/11/19 09:36 [facility] (Rec: 05/11/19 09:59 [facility] [id number]) OT- Subjective Occupational Therapy Visit Type Type Initial Evaluation Visit Start Time 08:48 Visit Stop Time 09:36 Total Visit Minutes 48 Occupational Therapy Visit Comments Patient Comments Pt feels like he is doing better and would like to go home. Pt's asleep in the room but awake at the end of OT eval. Patient/Caregiver Goals Pt wanting to go home today. OT Pain Assessment Pain When Pain Assessed At Rest Pain Present Pain Present Denied Pain M4 OT- IP ADL's Start: 05/11/19 09:36 Freq: Status: Active Protocol: Document 05/11/19 09:36 [facility] (Rec: 05/11/19 09:59 [facility] [id number]) OT CYT-Rvgl-Jmhydyl Comments OT Self-Feeding Comments Not at meal time. OT ADL-Grooming General Evaluation Grooming Ability Standby Assistance Areas Needing Assistance Retrieving/Set-up of Grooming Items Comments OT Grooming Comments Able to stand and lean on the counter with FWW in front of him for grooming needs. OT ADL-Oral Care General Eval Oral Care Ability Independent OT ADL-Dressing General Eval Lower Body Dressing Ability Maximum Assistance Areas Needing Assistance Socks Comments OT Dressing Comments Educated pt on LB dressing equipment as unable to bend down to jeison/doff socks. In addition educated pt to elevate his legs , do ankle pumps, and do inaja with his feet to help move fluid out of his feet. Pt able to use sock aid with SBA after initial demonstration and education. OT ADL-Toileting Comments OT Toileting Comments Pt not having to go, pt states use of urinal at home. Pt use of tub and left counter to help stand at home from the standard toilet. OT ADL-Bathing Comments OT Bathing Comments Recommended that pt get a tub bench to increase safety to get into and out of the tub. Pt states will go to the [employer] and seek out equipment. M5 OT- IP IADL's Start: 05/11/19 09:36 Freq: Status: Active Protocol: Document 05/11/19 09:36 [facility] (Rec: 05/11/19 09:59 [facility] [id number]) OT-Instrumental Activities of Daily Living Medication Management Medication Management Caregiver Administers Money Management Money Management Comments Pt states he and his both pay the bills. Meal Preparation Meal Preparation Caregiver Provides Assist Instructional Technology Specialist Instructional Technology Specialist Caregiver Provides Assist Driving Driving Caregiver Provides Assist M6 OT- IP Functional Cognition Start: 05/11/19 09:36 Freq: Status: Active Protocol: Document 05/11/19 09:36 [facility] (Rec: 05/11/19 09:59 [facility] [id number]) Cognitive Factors Limiting Selfcare Function Cognitive Ability Level of Alertness Alert Patient Orientation Name,Date,Year,Day of Week, Place,Situation Attention Span Ability Capable of Focused Attention, Capable of Sustained Attention Ability to Follow Commands Able to Follow One Step Commands Safety Awareness Underestimates Need for Assistance Cognitive Comments Cognitive Assessment Comments Pt a initially a little slow to comprehend directions and needing concrete cues to follow. MODA for safety awareness and use of FWW. VC to push up from surfaces when coming to stand as pt tends to pull on the FWW. Pt tends to keep the FWW out too far in front of him and needing cues to keep it closer. OT- Vision and Hearing OT- Vision Assessment Visual Acuity Glasses For Reading Visual Attentiveness WFL Occular Pursuits WFL Visual Convergence Impaired Visual Beatty WFL Diplopia Absent M7 OT- IP Mobility and Balance Start: 05/11/19 09:36 Freq: Status: Active Protocol: Document 05/11/19 09:36 [facility] (Rec: 05/11/19 09:59 [facility] [id number]) OT- Bed Mobility Assessment Rolling Type of Rolling Roll to Left Level of Assistance Standby Assistance,Bedrails Supine to Sit Supine to Sit Assist Standby Assistance,Bedrails Sit to Supine Sit to Supine Assist Standby Assistance,Bedrails Scooting Scooting to Edge of Bed Standby Assistance Scooting Up and Down in Bed Standby Assistance OT-Transfer Assessment Sit to and From Stand Sit to and from Stand Standby Assistance,Minimal Assistance Transfers Transfer Ability Contact Guard Assistance, Minimal Assistance Technique Transfer Destination Bed,Chair Transfer Technique Stand Step Pivot Devices Transfer Assistive Devices Gait Belt,Standard Walker Comments Mobility Comments Increased time to roll and heavy use of bed rail to assist to get upright from side lying. Pt would benefit from bed rail at home. Sit to stand form SBA to MAYUR form lower surfaces. Pt able to transfer with CGA to MAYUR, as pt a little unsteady on his feet and tends to lean to the left. OT- Gait Assessment Gait Gait Assistance Required: Contact Guard Assist,Minimum Assistance Assistive Devices Assistive Device Gait Belt,Front Wheeled Walker OT- Balance Assessment Sitting Balance and Reactions Static Sitting Balance Ability Good Dynamic Sitting Balance Ability Fair Standing Balance and Reactions Static Standing Balance Ability Fair Dynamic Standing Balance Ability Poor M8 OT- IP Objective Assessments Start: 05/11/19 09:36 Freq: Status: Active Protocol: Document 05/11/19 09:36 [facility] (Rec: 05/11/19 09:59 [facility] [id number]) OT Gross Range of Motion Upper Extremity Range of Motion Assessment Bilaterally Impaired ROM Impairments Intact form elbow ro distal. Pt states for years has been getting steroid shots for his shoulders, i have bad shoulders. OT Strength Upper Extremity Strength Assessment Bilaterally Impaired Shoulder 3-/5 Elbow 4-/5 Wrist 3+/5 Hand 3+/5 OT- Coordination Assessment Comments Coordination Comments After second attempt able to accurate get index finger to nose with left hand. OT-Muscle Tone Assessment Muscle Tone WNL Yes OT Sensation Assessment Comments Summary Comments Intact for light touch. Pt states however left side feels a little off from the right side when touched. Edema Edema Present Edema Comments Bilateral feet swollen. M9 OT- IP Assessment and Plan Start: 05/11/19 09:36 Freq: Status: Active Protocol: Document 05/11/19 09:36 [facility] (Rec: 05/11/19 09:59 [facility] [id number]) OT Summary Assessment and Plan Potential Rehabilitation Potential Good Analytic Complexity at Evaluation Low Summary OT Impairments Pain,Strength,Balance, Functional Cognition, Functional Mobility,Grooming, Dressing,Toileting,Bathing, Toilet Transfers,Shower Transfers,Activity Tolerance Progress Towards Goals Slow Progress due to Medical Issues,Slow Progress due to Activity Tolerance Assessment Summary Pt low complexity and main barriers are steps, decreased activity tolerance, dynamic balance, and needing assist for ADl and functional mobility needs. Pt has a supportive but not able to do any lifting. Once medically cleared pt would benefit from home with home health OT/PT. Goals Grooming Goal Independent Dressing Goal Standby Assistance Toileting Goal Independent Bathing Goal Contact Guard Assistance Toilet Transfer Goal Standby Assistance Shower Transfer Goal Standby Assistance Patient/Caregiver Education Goal Demonstrate Energy Conservation and Pacing, Caregiver Independent Assisting Patient Days to Meet Goals 5 Treatment Plan OT Treatment Plan ADL Training,Functional Cognition Training,Functional Mobility,Patient/Family Education,Discharge Planning Other Treatment Recommendations and Next Energy conservation, shower Treatment Focus Discharge Recommendations OT Discharge Recommendations Home with Assistance,Home Health Home Equipment Needs tub bench, bed rail Transportation Needs at Discharge Private Vehicle
[2019-05-11 11:00] VITALS: BP 125/61; PULSE 57; RESP 16; TEMP 37; O2SAT 97
--- NOTE | 2019-05-11 11:57 | PT.IIE ---
Surgical History (Last Updated 05/11/19 @ 03:27 by ASHISH Watts) History of local excision of skin lesion (Acute) History of prostatectomy (Acute) Medical History (Last Updated 05/11/19 @ 03:27 by ASHISH Watts) Agent orange exposure (Acute) Chronic back pain (Acute) Chronic renal insufficiency, stage III (moderate) (Acute) Diabetes (Acute) GERD (gastroesophageal reflux disease) (Acute) Hypertension (Acute) Pancreatic cancer (Acute) Peripheral neuropathy (Acute) Prostate cancer (Acute) PTSD (post-traumatic stress disorder) (Acute) Skin cancer (Acute) Physical Therapy Inpatient Evaluation/Re-Eval M1 PT/OT-IP Prior Functional Status Start: 05/11/19 09:36 Freq: NEEDED Status: Active Protocol: Document 05/11/19 11:33 AW (Rec: 05/11/19 11:57 AW [id number]) Medical Review Prior Functional Status Medical History Reviewed Yes Communication Independent. Mobility and Gait Pt states use of FWW in the house and wc for longer distances when going outside. Activities of Daily Living and IADL's Pt staets since having PNA, has had to assist with Lb dressing and bathing needs. Pt states has just started to be able to wipe himself after a bowel movement. Social History Household Members spouse Living Arrangements House Number of Floors (Floors) Two Floors Number of Stairs To Enter/Railing? Pt has a split level house. 2 wide steps to enter the house with no handrails. 7 steps up with right rail to get to the main level of the house. Pt states nedding assist from and daughter to get get up and dwon the steps and at times needing them to help move his legs. Home Environment Standard Height Toilet,Tub/ Shower Home Equipment Front Wheel Walker,Straight Cane,Manual Wheelchair,Hand Held Shower Employment Status Retired Additional Social History Comment Pt's able to assist but minimally if needing physical assist. Pt's kids per pt are not reliable to come and help out consistently. M2 PT-IP Current Condition Start: 05/11/19 08:57 Freq: NEEDED Status: Active Protocol: Document 05/11/19 11:33 AW (Rec: 05/11/19 11:57 AW [id number]) Physical Therapy Current Condition Current Condition Evaluation Date 05/11/19 Treatment Diagnosis acute pulmonary emboli, impaired mobility Onset Date 05/10/19 Weight Bearing Status Weight Bearing Status Full Weight Bearing M3 PT-IP Subjective Start: 05/11/19 08:57 Freq: NEEDED Status: Active Protocol: Document 05/11/19 11:33 AW (Rec: 05/11/19 11:57 AW [id number]) Subjective Physical Therapy Visit Type Type Initial Evaluation Visit Start Time 10:30 Visit Stop Time 10:50 Total Visit Minutes 20 Notes Pt's , Odilia, present throughout evaluation Number of DIGITAL BUSINESS ANALYST Visits 0 Physical Therapy Visit Comments Patient Comments Pt is willing to participate with PT Therapy Pain Assessment Pain When Pain Assessed At Rest Pain Present Pain Present Denied Pain M4 PT-IP Mobility and Gait Start: 05/11/19 08:57 Freq: NEEDED Status: Active Protocol: Document 05/11/19 11:33 AW (Rec: 05/11/19 11:57 AW [id number]) PT-Bed Mobility Assessment Supine to Sit Supine to Sit Standby Assistance Sit to Supine Sit to Supine Standby Assistance Scooting Scooting to Edge of Bed Standby Assistance PT-Transfer Assessment Sit to and From Stand Sit to and from Stand Contact Guard Assistance,Use of Upper Extremities Equipment Transfer Assistive Device Gait Belt,Front Wheeled Walker Orthotic/Prosthetic Devices or Brace: No Transfers Transfer Destination Bed Transfer Ability Level of Assist Contact Guard Assistance Comments Mobility Comments Pt has chronic low back pain and tends to lie shifted toward his left side. From flattened bed, he completed supine to sit SBA and was able to sit EOB with UE support for MMT. He stood using FWW CGA. After gait training, he requested to return to the bed since he had already been up in the chair today. He completed sit to supine SBA. Gait Assessment Gait Gait Assistance Required: Contact Guard Assist Distance (Feet) 50 Able to Maintain Weight Bearing Status Yes During Gait Assistive Devices Assistive Device Gait Belt,Front Wheeled Walker Orthotic/Prosthetic Devices or Brace: No Gait Deviations General Gait Pattern Antalgic,Decreased Stride Length,Decreased Feet Clearance,Flexed Trunk Factors Limiting Gait Function Factors Limiting Gait Function Decreased Activity Tolerance, Decreased Sensation,Decreased Strength,Poor Safety Awareness Comments Gait Comments Pt ambulated ~50 in [address] halls with FWW CGA. He walked with significantly flexed trunk, stating his back felt better when he assumed that posture. He required constant cues to keep the walker closer to his trunk and had one near LOB during a turn due to difficulty keeping his feet within the walker frame. Pt with limited dorsiflexion and inability to achieve heelstrike during gait. Stair Climbing Assessment Comments Stair Climbing Comments Not assessed PT-Balance Assessment Sitting Balance and Reactions Static Sitting Balance Ability Good Dynamic Sitting Balance Ability Good Standing Balance and Reactions Static Standing Balance Ability Fair Dynamic Standing Balance Ability Fair Device Used FWW M5 PT-IP Objective Assessments Start: 05/11/19 08:57 Freq: NEEDED Status: Active Protocol: Document 05/11/19 11:33 AW (Rec: 05/11/19 11:57 AW [id number]) Orientation Orientation/Cognition Level of Alertness Lethargic Orientation Name,Day of Week,Place, Situation Language Function Ability No Deficits Noted Safety Awareness Decreased Safety Awareness Memory Description No Deficits Noted Gross Range of Motion Upper Extremity ROM Assessment Bilaterally Impaired Lower Extremity ROM Assessment Bilaterally Impaired Impairments edema is limiting ankle mobility Strength Lower Extremity Strength Assessment Bilaterally Impaired Hip L 3-/5; R 4-/5 Knee B 4-/5 Ankle B 3/5 Comments Strength Comments Pt unable to flex left hip against gravity in sitting position, but he was able to raise the left leg into the bed without assist. Pt unclear whether pain or weakness limiting his left hip. Coordination Assessment Gross Coordination Gross Coordination Impaired Assessment Pronation/Supination Test Minimal Impairment Coordination Comments Pt out of rhythm with rapid pronation/supination > 2 seconds Sensation Assessment Sensation Gross Sensation Right LE Impaired,Left LE Impaired Light Touch Impaired Proprioception (Position) Impaired Comments Sensation Comments Impaired sensation and proprioception in bilateral feet/ankles M6 PT-IP Treatment Start: 05/11/19 08:57 Freq: NEEDED Status: Active Protocol: Document 05/11/19 11:33 AW (Rec: 05/11/19 11:57 AW [id number]) Physical Therapy Treatment Education Education Provided Precautions,Safety Other Treatments Other Treatment Performed Provided education on role of PT, plan of care, and safe use of FWW. M7 PT-IP Assessment and Plan Start: 05/11/19 08:57 Freq: NEEDED Status: Active Protocol: Document 05/11/19 11:33 AW (Rec: 05/11/19 11:57 AW [id number]) PT Summary Assessment and Plan Potential Rehabilitation Potential Good Status of Condition at Evaluation Evolving Summary Impairments ROM,Strength,Balance, Coordination,Bed Mobility, Transfers,Gait,Activity Tolerance Assessment Summary Gildardo is an 83 yo man recently hospitalized at [facility] with pneumonia who is currently admitted [facility] acute RLL PE. At baseline, he has limited activity tolerance and ambulates only household distances. He uses a wheelchair for community mobility and FWW for getting around his home. On evaluation , he presents with significant BLE weakness, BLE edema limiting ankle mobility, and balance deficits during ambulation trial with FWW. He will benefit from continued acute care PT to address these impairments. PT recommends discharge back to home environment pending performance on stairs with assistance and with home health therapy. Goals Bed Mobility Goal Independent Transfer Goal Independent,Front Wheeled Walker Gait Goal Independent,Front Wheel Walker Gait Distance 120 Other Goals - up/down 7 steps with R rail ascending CGA or less Days to Meet Goals 5 Frequency of Treatment Frequency Of Treatment Once a Day Treatment Plan Physical Therapy Treatment Plan Bed Mobility Training,Transfer Training,Gait Training, Therapeutic Exercise,Balance Retraining,Discharge Planning, Hot or Cold Pack,Neuromuscular Re-ed,Coordination Retraining Other Recommendations and Next Treatment assess stairs Focus Recommendations To Nursing Amount of Assist Needed 1 Person Assist Discharge Recommendations PT Discharge Recommendations Home with Assistance,Home with 24/7 Assist,Home Health Equipment Needed for Home Before tub transfer bench Discharge Transportation Needs at Discharge Private Vehicle
[2019-05-11] MEDS: BISACODYL 10 MG SUPP PR (12:09)
--- NOTE | 2019-05-11 14:09 | DIET.PN ---
Dietary Progress Note Assessment: Mr. Ewing is an 83-year-old male with a history significant for type 2 diabetes, hypertension, pancreatic cancer, prostate cancer, chronic back pain and GERD who presents to the ER for 3 days of weakness, feeling tired, shortness of breath, and cough. He was recently admitted to [facility] and discharged 1 week ago following treatment for pneumonia. He reports improved appetite since admission, but complains of abdominal pain, gas and bloating, severe unintentional weight loss, and overall poor dietary habits r/t radiation and chemotherapy. He admits to not cooking much at home and that most meals are dined out. HT: 172.72 cm WT: 103.6 kg UBW: 265 lb Change: 14% BMI: 34.7 Labs: K: 2.5 BUN: 23 Cr: 1.3 eGFR: 57.7 Gluc: 120, 114 T Bili: 114 AST: 172 ALT: 124 Alk Phos: 662 Lipase: 445 MNA: 8 Robe: 17 Nutrition Diagnosis: Chronic non-severe PCM r/t physiological causes increasing nutrient needs due to illness energy intake <75% EER > 1mo, GI symptoms (chronic abdominal pain), weight loss > 7.5% in 3 mo. Interventions: 1. Provided handouts on carb consistent diet and reviewed carb counting. Pt with good understanding. 2. Discussed low-fat nutrition therapy. Provided handouts on ways to limit fat while maintaining caloric goals including increasing heart healthy fats and proteins. Diet Order: carb consistent (med); low fat EER: 2000 ayesha @ 30 ayesha/kg IBW 100 g pro @ 1.5g/kg Monitoring/Evaluations: PO's, weight, nutritional labs, need for ONS
[2019-05-11 15:32] VITALS: BP 124/53; PULSE 57; RESP 19; TEMP 35.8; O2SAT 97
[2019-05-11 15:43] LABS: HEMOLYSIS < 15 (0-50); Potassium 3.5 mmol/L (3.4-5.1)
--- NOTE | 2019-05-12 19:24 | PC.NURSE ---
Patient is being seen at [facility] ED, [facility] called requesting records from patients visit for continuity of care.
--- NOTE | 2019-05-13 10:31 | P.DS_ITS ---
History of Present Illness History of Present Illness Date Patient Seen: 05/11/19 Chief complaint: Thinks Pnemonia Narrative: Mr. Gildardo Llanos is an 83-year-old male with a h istory significant for type 2 diabetes, hypertension, pancreatic cancer, prostate cancer, chronic back pain and GERD who presents to the ER for 3 days of weakness feeling tired, shortness of breath and intermittent nonproductive cough. The patient was recently admitted to [facility] and discharged 1 week ago following treatment for pneumonia and states his concern of pneumonia returning. Upon discharge from [facility] the patient was prescribed 80 mEq of potassium daily to which the pharmacy stated that that dose was too high and told the patient to take 40 mg daily. The patient also complains of abdominal pain with a history of pancreatic cancer. He has previously received chemother apy and is taking OxyContin and oxycodone for pain. The patient denies complaints of headaches or dizziness, fevers or chills. He has no nasal congestion or sore throat. Denies complaints of chest pain or palpitations and has shortness of breath that appears to be exertional with cough as above. He has chronic abdominal pain that he states is unchanged. He reports complaints of reflux symptoms with acid taste and hoarseness. He denies nausea or vomiting and denies constipation or diarrhea. Reports no difficulty urinating and takes torsemide for bilateral lower extremity edema. He also reports neuropathy of bilateral lower extremities creating difficulty ambulating for which she is un dergoing physical therapy. Upon arrival the ER the patient is afebrile with temperature of 96.8?, heart rate of 58, blood pressure 173/70, respiratory rate of 22 saturating 100% on room air. CT of the abdomen pelvis revealed feels heart ductal dilatation including the main pancreatic duct, gallbladder is enlarged with stasis versus hydrops with small stones present, colonic diverticulosis without diverticulitis, enlarged portacaval lymph nodes. CT of the chest is obtained which reveals subsegmental right lower lobe pulmonary emboli, elevated left hemidiaphragm with scarring versus atelectasis bilateral bases without pneumonia. Twelve lead EKG is obtained which finds a sinus Ted with a rate of 57, right axis with a right bundle branch block, left posterior fascicular block, no evidence of ischemia. On laboratory analysis patient has white blood cell count of 7.5, hemoglobin of 10.5, hematocrit of 30.3 and platelets of 231. Coagulation has a PT of 20.9 with an INR of 1.8 and PTT of 31 not on anticoagulation. On chemistries patient was initially found to have a potassium of 2.2 which was repleted with 40 mEq p.o. and 40 mEq IV and on recheck was found to be 2.8. His LFTs are markedly elevated a total bilirubin 12.2, AST of 170, ALT of 130 and alkaline phosphatase of 652. His lipase is 445. He has a from that is elevated at 0.043 in the setting of chronic renal disease. On urinalysis he has 5-10 wbc's many bacteria casts but is asymptomatic. Size repletion of potassium in the ER the patient receives Lovenox 1 milligram/kilogram for 115 mg subcutaneously. Patient is admitted to the medicine service for pulmonary emboli and hypokalemia. Discharge Providers Provider Date of admission: 05/10/19 18:27 Discharge Date: 05/11/19 Primary care physician: Gus Friedman MD Consults: 05/10/19 20:13 Consult to Dietitian, Adult Routine Comment: Reason For Exam: Pancreatic cancer, elevated liver function tests Consult to Discharge Planning Routine Comment: 05/11/19 03:16 Consult to Physical Therapy Evaluate & Treat Comment: BLE neuropathy and edema, impaired mobility. Physician Instructions: Evaluate and Treat 05/11/19 03:17 Consult to Occupational Therapy Evaluate & Treat Comment: BLE neuropathy and edema, impaired mobility. Physician Instructions: Evaluate and treat 05/11/19 13:53 Consult to Home Health Routine Comment: Reason For Exam: Home health nursing, P.T, O.T, ACLS SPECIALIST, bath aide Discharge provider: Aan Huertas MD Summary Hospital Course Discharge Diagnosis: 1. Right lower lobe subsegmental pulmonary emboli 2. Hypokalemia 3. Pancreatic carcinoma 4. Hypertension 5. Hyperlipidemia 6. Bilateral lower extremity edema 7. Prostate cancer 8. Chronic back 9. GERD Hospital Course: Patient is an 83-year-old male with history of pancreatic cancer, hypertension hyperlipidemia chronic back pain GERD who was admitted to the hospital for a right lower lobe subsegmental pulmonary embolus. Patient presented with increasing shortness of breath. However despite PE diagnosis he did not require oxygenation in the hospital. The patient was placed on b.i.d. dosing of Lovenox. He had improvement of his breathing improvement of his symptoms. He has a baseline diagnosis of pancreatic cancer. Given his development of a pulmonary embolus in the setting of primary malignancy the patient was discharged on b.i.d. dosing of Lovenox instead of Coumadin or an oral anticoagulant. He has a follow-up appointment with his oncologist/radiation oncologist for further evaluation of his pancreatic cancer. The patient had no further symptoms. He was markedly hypokalemic during the hospital stay. He received to [employer] during the hospital stay plus in addition of oral potassium prior to discharging home. At the time of discharge she was in no acute distress had no complaints and was deemed appropriate for discharge home. Exam Vital Signs (past 8 hours): Oxygen Delivery Method Room Air Oxygen Flow Rate 0 Narrative Exam Narrative: Pleasant male resting comfortably in no obvious distress Lungs: Decreased breath sounds but clear to auscultation Cardiac exam: Regular rate rhythm normal S1-S2 Abdomen: Soft nontender nondistended Extremities: 2+ pitting edema bilateral Objective Labs Result Diagrams: 05/11/19 05:22 05/11/19 15:24 Discharge Plan Discharge Plan Patient Disposition: Home Discharge orders & Medications Prescriptions: New enoxaparin [Lovenox] 100 mg/mL syringe 100 mg SUBCUT Q12H 30 Days Qty: 60 RF: 0 Continued carvedilol 25 mg Tablet 25 mg PO BID RF: 0 prednisone 10 mg Tablet 40 mg PO DAILY RF: 0 torsemide 20 mg Tablet 20 mg PO DAILY RF: 0 aspirin 325 mg Tablet 325 mg PO DAILY RF: 0 ondansetron HCl 8 mg Tablet 8 mg PO PRN PRN (Reason: Nausea) RF: 0 lisinopril 20 mg Tablet 20 mg PO DAILY RF: 0 potassium chloride [Klor-Con 10] 10 mEq Tablet Extended Release 10 meq PO DAILY RF: 0 prochlorperazine maleate 10 mg Tablet 10 mg PO Q6H PRN (Reason: Nausea) RF: 0 allopurinol 100 mg Tablet 100 mg PO DAILY RF: 0 lidocaine-prilocaine 2.5-2.5 % Cream 1 applic topical PRN PRN (Reason: Port/Catheter Care) RF: 0 codeine-guaifenesin [Guaiatussin AC] 10-100 mg/5 mL Liquid 10 ml PO Q4-6H PRN (Reason: Cough) RF: 0 hydralazine 50 mg Tablet 50 mg PO TID RF: 0 clobetasol 0.05 % Ointment 1 applic TOPICAL PRN PRN (Reason: Rash) RF: 0 levofloxacin 500 mg Tablet 500 mg PO PRN PRN (Reason: Fever) RF: 0 colchicine 0.6 mg Tablet 0.3 mg PO DAILY RF: 0 tadalafil 20 mg Tablet 20 mg PO DAILY RF: 0 oxycodone 10 mg Tablet 10 mg PO TID PRN (Reason: Pain (Scale Score 7-10)) RF: 0 oxycodone 10 mg Tablet 10 mg PO BID PRN (Reason: Pain (Scale Score 7-10)) RF: 0 potassium chloride 20 mEq Tablet Extended Release 20 meq PO DAILY RF: 0 oxycodone [OxyContin] 10 mg Tablet,Oral Only,Ext.Rel.12 Hr 10 mg PO BID RF: 0 Follow up/Referrals: Gus Friedman MD [Primary Care Provider] - Diet/Activity/Treatments Diet: Low-fat and Low-sodium Visit Report/Discharge Packet Instructions: Progress in Stroke Prevention, DI for Pulmonary Embolism, DI for Hypokalemia, Enoxaparin Injection, How to Give a Subcutaneous Injection With a Pre-filled Syringe Visit Report Forms: Patient Portal/API, Stroke Signs & Symptoms Discharge Data Primary Care Provider: Gus Friedman Attending Provider: Nidhi Hernandez Admit Date/Time: 05/10/19 18:27 Discharges patient from system. Discharge Date/Time: 05/11/19 16:47
--- NOTE | 2019-05-13 12:16 | CM.DPC ---
DCP Cont: Faxed discharge summary to [facility] at fax # [phone]. Fax confirmation scanned in. Carline Beckwith, Care Learning Coach
--- NOTE | 2019-05-20 10:06 | PC.NURSE ---
Late entry: Potassium chloride stop time 05/11 4139
== END 2019-05-11 16:47 | disposition home or self-care (01) ==
LOC: ED 17:39 → AC 05-11 08:03
PROVIDERS: Emergency Medicine; Internal Medicine; Nurse Practitioner Adult Health; Admitting Provider Internal Medicine; Emergency Provider Emergency Medicine; PCP Family Medicine; Referring Provider Internal Medicine; Visit Provider Internal Medicine
DX: I26.99 Other pulmonary embolism without acute cor pulmonale (principal); R53.1 Weakness; R05 Cough; R06.02 Shortness of breath; E87.6 Hypokalemia; R10.9 Unspecified abdominal pain; K21.9 Gastro-esophageal reflux disease without esophagitis; E78.5 Hyperlipidemia, unspecified; I10 Essential (primary) hypertension; C25.9 Malignant neoplasm of pancreas, unspecified; E11.9 Type 2 diabetes mellitus without complications; N18.3 Chronic kidney disease, stage 3 (moderate); G89.29 Other chronic pain; M54.9 Dorsalgia, unspecified; G62.9 Polyneuropathy, unspecified; R94.5 Abnormal results of liver function studies; R60.0 Localized edema; D64.9 Anemia, unspecified
CPT/HCPCS: 36415; 71275; 74177; 80053; 81003; 81015; 82550; 82962; 83036; 83605; 83690; 83735; 84132; 84145; 84484; 85025; 85610; 85730; 87040; 87086; 87502; 93005; 96365; 96366; 96367; 96372; 97162; 97165; 97535; 99285; G0378; J1650; J3480; Q9967